=== PATIENT | male | born 1965 | race Caucasian/White ===

== ENCOUNTER 2019-05-07 11:01 | Observation (INO) | payer MEDICAID ==
[~2019-05-07] VITALS: Ht 165.1 cm; Wt 72.5 kg
[~2019-05-07 11:01] MED LIST: ACHD5005 PO; ALPR1TAB2 PO; BSP10T PO; CYCL10TA45 GT; CYCL10TA9 PO; DCS100C PO; DESM0.1T5 PO; FLUO20CA42 PO; FLUO40CA12 PO; HC2.5C30 TOP; HYDR-700 PO; IBP800T PO; LEVO75TA6 PO; LITH300T15 PO; LORA10TA2 PO; MECL12.579 PO; MIRT15TA6 PO; OLAN5TAB25 PO; OMEP40CA36 PO; ONDA4TAB8 PO; PRD20T PO; TAMS0.4C2 PO; TIZA4TAB4 PO; TOPI50TA37 PO; TRM50T PO
[2019-05-07] MEDS ORDERED: HYDROCORTISONE 100 MG/2 ML (Solu-CORTEF) VIAL IV ONE (11:30)
[2019-05-07] MEDS ORDERED: ONDANSETRON 4 MG/2 ML (SDV) Z0FRAN IVP ONE (11:30)
[2019-05-07] MEDS ORDERED: NS IV 1000 ML 1,000 ML IV SCH (11:30)
--- NOTE | 2019-05-07 11:35 | ED GI ---
General Chief Complaint: Abdominal/GI Problems Stated Complaint: VOMITING/DIARRHEA Source of Information: Patient Exam Limitations: No Limitations History of Present Illness Date Seen by Provider: May 07, 2019 Time Seen by Provider: 11:32 Initial Comments To ER with nausea vomiting diarrhea and fatigue since 05/05. No fever no chills. History of pituitary tumor surgery, chronically maintained on prednisone 5 mg daily for his renal insufficiency. He's been unable to take that for the past 48-72 hours because the nausea and vomiting. They are from near [facility], here visiting family. Timing/Duration: 1-2 Days Severity/Quality: Moderate Location: Generalized Abdomen Radiation: No Radiation Activities at Onset: None Associated Symptoms: Nausea/Vomiting Allergies and Home Medications Allergies Coded Allergies: Penicillins (Verified Allergy, Unknown, 05/01/16) Home Medications Alprazolam 1 Mg Tablet, 1 MG PO TID PRN for ANXIETY, (Reported) Desmopressin Acetate 0.1 Mg Tablet, 0.1 MG PO BID, (Reported) Fluoxetine HCl 20 Mg Capsule, 20 MG PO DAILY, (Reported) Hydroxyzine HCl 25 Mg Tablet, 25 MG PO DAILY, (Reported) Ibuprofen 800 Mg Tab, 800 MG PO Q8HR PRN Prescribed by: DUC WRIGHT on 01/16/13 2221 Levothyroxine Sodium 75 Mcg Tablet, 75 MCG PO DAILY, (Reported) Meclizine HCl 12.5 Mg Tablet, 12.5 MG PO TID, (Reported) Mirtazapine 15 Mg Tablet, 15 MG PO HS, (Reported) Olanzapine 5 Mg Tablet, 5 MG PO DAILY, (Reported) Omeprazole 40 Mg Capsule.dr, 40 MG PO DAILY, (Reported) Ondansetron 4 Mg Tab.rapdis, 4 MG PO Q6H PRN for NAUSEA, (Reported) Prednisone 20 Mg Tab, 20 MG PO BID Prescribed by: VINAY SAEED on 05/03/16 1235 Tamsulosin HCl 0.4 Mg Cap.er.24h, 0.4 MG PO DAILY, (Reported) Tizanidine HCl 4 Mg Tablet, 4 MG PO TID, (Reported) Topiramate 50 Mg Tablet, 50 MG PO BID, (Reported) Patient Home Medication List Home Medication List Reviewed: Yes Review of Systems Review of Systems Constitutional: see HPI; No chills, No fever EENTM: No Symptoms Reported Respiratory: No Symptoms Reported Cardiovascular: No Symptoms Reported Gastrointestinal: See HPI, Diarrhea, Nausea Genitourinary: No Symptoms Reported Musculoskeletal: no symptoms reported Skin: no symptoms reported Psychiatric/Neurological: No Symptoms Reported Endocrine: No Symptoms Reported Hematologic/Lymphatic: No Symptoms Reported Past Qduocvw-Dztoce-Jjogsx Hx Patient Social History Alcohol Beverage of Choice: Beer Drug of Choice: MARIJUANA Type Used: Cigarettes Former Smoker, Quit: May 01, 2008 Recent Foreign Travel: No Contact w/Someone Who Travel: No Recent Hopitalizations: Yes Immunizations Up To Date Tetanus Booster (TDap): Unknown Seasonal Allergies Seasonal Allergies: Yes Past Medical History Currently Using CPAP: No Currently Using BIPAP: No Hypotension Reproductive Disorders: No Sexually Transmitted Disease: No HIV/AIDS: No Chronic Diarrhea Arthritis Hypothyroidsim, Pituitary Disease Hearing Impairment: Hard of Hearing Anxiety, Bipolar, Depression Adverse Reaction/Blood Tranf: No Family Medical History No Pertinent Family Hx Physical Exam Vital Signs Vital Signs - First Documented 05/07/19 11:46 Pulse 95 Resp 18 B/P (MAP) 118/91 (100) Pulse Ox 95 Capillary Refill : Height/Weight/BMI Height: 5'6.00" Weight: 153lbs. 0.0oz. [id number]; 24.7 BMI Method:Stated General Appearance: WD/WN, no apparent distress HEENT: PERRL/EOMI, normal ENT inspection Neck: non-tender, full range of motion Respiratory: no respiratory distress, no accessory muscle use Cardiovascular: regular rate, rhythm, no murmur Gastrointestinal: normal bowel sounds, soft, tenderness (no pain at rest, minimally tender to palpation) Extremities: normal range of motion, non-tender Neurologic/Psychiatric: alert, normal mood/affect, oriented x 3 Skin: normal color, warm/dry Progress/Results/Core Measures Results/Orders Lab Results Laboratory Tests Test 05/07/19 11:30 05/07/19 13:45 Range/Units White Blood Count 11.3 H 4.3-11.0 10^3/uL Red Blood Count 5.43 4.35-5.85 10^6/uL Hemoglobin 17.3 13.3-17.7 G/DL Hematocrit 49 40-54 % Mean Corpuscular Volume 91 80-99 FL Mean Corpuscular Hemoglobin 32 25-34 PG Mean Corpuscular Hemoglobin Concent 35 32-36 G/DL Red Cell Distribution Width 13.6 10.0-14.5 % Platelet Count 278 130-400 10^3/uL Mean Platelet Volume 12.0 H 7.4-10.4 FL Neutrophils (%) (Auto) 52 42-75 % Lymphocytes (%) (Auto) 29 12-44 % Monocytes (%) (Auto) 13 H 0-12 % Eosinophils (%) (Auto) 7 0-10 % Basophils (%) (Auto) 0 0-10 % Neutrophils # (Auto) 5.8 1.8-7.8 X 10^3 Lymphocytes # (Auto) 3.2 1.0-4.0 X 10^3 Monocytes # (Auto) 1.4 H 0.0-1.0 X 10^3 Eosinophils # (Auto) 0.8 H 0.0-0.3 10^3/uL Basophils # (Auto) 0.0 0.0-0.1 10^3/uL Sodium Level 139 135-145 MMOL/L Potassium Level 3.3 L 3.6-5.0 MMOL/L Chloride Level 108 H 98-107 MMOL/L Carbon Dioxide Level 18 L 21-32 MMOL/L Anion Gap 13 5-14 MMOL/L Blood Urea Nitrogen 23 H 7-18 MG/DL Creatinine 1.42 H 0.60-1.30 MG/DL Estimat Glomerular Filtration Rate 53 BUN/Creatinine Ratio 16 Glucose Level 119 H 70-105 MG/DL Calcium Level 8.9 8.5-10.1 MG/DL Corrected Calcium 8.9 8.5-10.1 MG/DL Magnesium Level 1.8 1.6-2.4 MG/DL Total Bilirubin 0.9 0.1-1.0 MG/DL Aspartate Amino Transf (AST/SGOT) 9 5-34 U/L Alanine Aminotransferase (ALT/SGPT) 6 0-55 U/L Alkaline Phosphatase 87 40-136 U/L Total Protein 6.7 6.4-8.2 GM/DL Albumin 4.0 3.2-4.5 GM/DL Lipase < 4 L 8-78 U/L Thyroid Stimulating Hormone (TSH) 0.04 L 0.35-4.94 UIU/ML Free Thyroxine 0.97 0.70-1.48 NG/DL Urine Color YELLOW Urine Clarity CLEAR Urine pH 6.0 5-9 Urine Specific [place] 1.025 H 1.016-1.022 Urine Protein NEGATIVE NEGATIVE Urine Glucose (UA) NEGATIVE NEGATIVE Urine Ketones NEGATIVE NEGATIVE Urine Nitrite NEGATIVE NEGATIVE Urine Bilirubin NEGATIVE NEGATIVE Urine Urobilinogen 0.2 < = 1.0 MG/DL Urine Leukocyte Esterase NEGATIVE NEGATIVE Urine RBC (Auto) NEGATIVE NEGATIVE Urine RBC NONE /HPF Urine WBC NONE /HPF Urine Squamous Epithelial Cells 2-5 /HPF Urine Crystals NONE /LPF Urine Bacteria TRACE /HPF Urine Casts NONE /LPF Urine Mucus SMALL H /LPF Urine Culture Indicated NO My Orders Orders - YOUNG EM BALANCER Cbc With Automated Diff (05/07/19 11:29) Comprehensive Metabolic Panel (05/07/19 11:29) Lipase (05/07/19 11:29) Ua Culture If Indicated (05/07/19 11:29) Ed Iv/Invasive Line Start (05/07/19 11:29) Magnesium (05/07/19 11:29) Thyroid Stimulating Hormone (05/07/19 11:29) Free T4 (Free Thyroxine) (05/07/19 11:29) Ns Iv 1000 Ml (Sodium Chloride 0.9%) (05/07/19 11:30) Ondansetron Injection (Zofran Injectio (05/07/19 11:30) Hydrocortisone Injection (Solu-Cortef In (05/07/19 11:30) Ct Abdomen/Pelvis Wo (05/07/19 12:25) Lactated Ringers (Lr 1000 Ml Iv Solution (05/07/19 13:30) Medications Given in ED Current Medications Medications Dose Ordered Sig/Francisco Route Start Time Stop Time Status Last Admin Dose Admin Hydrocortisone Sodium Succinate 100 mg ONCE ONCE IV 05/07/19 11:30 05/07/19 11:31 DC 05/07/19 11:45 100 MG Ondansetron HCl 4 mg ONCE ONCE IVP 05/07/19 11:30 05/07/19 11:31 DC 05/07/19 11:45 4 MG Vital Signs/I&O 05/07/19 11:46 Pulse 95 Resp 18 B/P (MAP) 118/91 (100) Pulse Ox 95 Departure Communication (Admissions) Time/Spoke to Admitting Phy: 14:13 Discussed with the patient going home with increased dose of prednisone at home for the next few days or admission to the hospital. He would prefer to be admitted. I then discussed with Dr. Pantoja, we'll admit with repeat dose of hydrocortisone 50 mg at 6 hours after the first dose of 100 mg, then prednisone 15 mg daily which is 3 times his normal daily dose for 3 days. 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 Referrals: NO,LOCAL PHYSICIAN (PCP/Family) Primary Care Physician YOUNG EM APRN May 07, 2019 11:35 POS
[2019-05-07 11:37] LABS: BASOPHILS % (AUTO) 0 % (0-10); EOSINOPHILS # (AUTO) 0.8 10^3/uL (0.0-0.3); EOSINOPHILS % (AUTO) 7 % (0-10); HEMATOCRIT 49 % (40-54); HEMOGLOBIN 17.3 G/DL (13.3-17.7); LYMPHOCYTES # (AUTO) 3.2 X 10^3 (1.0-4.0); LYMPHOCYTES % (AUTO) 29 % (12-44); MEAN CORPUSCULAR HEMOGLOBIN 32 PG (25-34); MEAN CORPUSCULAR HGB CONC 35 G/DL (32-36); MEAN CORPUSCULAR VOLUME 91 FL (80-99); MONOCYTES # (AUTO) 1.4 X 10^3 (0.0-1.0); MONOCYTES % (AUTO) 13 % (0-12); NEUTROPHILS # (AUTO) 5.8 X 10^3 (1.8-7.8); NEUTROPHILS % (AUTO) 52 % (42-75); PLATELET COUNT 278 10^3/uL (130-400); RED CELL DISTRIBUTION WIDTH 13.6 % (10.0-14.5); WHITE BLOOD COUNT 11.3 10^3/uL (4.3-11.0)
[2019-05-07 11:55] LABS: ALANINE AMINOTRANSFERASE 6 U/L (0-55); ALKALINE PHOSPHATASE 87 U/L (40-136); BILIRUBIN,TOTAL 0.9 MG/DL (0.1-1.0); BUN/CREATININE RATIO 16; CALCIUM 8.9 MG/DL (8.5-10.1); CARBON DIOXIDE 18 MMOL/L (21-32); CHLORIDE 108 MMOL/L (98-107); CREATININE SERUM 1.42 MG/DL (0.60-1.30); GFR ESTIMATED 53; GLUCOSE 119 MG/DL (70-105); LIPASE < 4 U/L (8-78); MAGNESIUM 1.8 MG/DL (1.6-2.4); POTASSIUM 3.3 MMOL/L (3.6-5.0); SODIUM 139 MMOL/L (135-145); TOTAL PROTEIN 6.7 GM/DL (6.4-8.2)
[2019-05-07 12:16] LABS: FREE T4 (FREE THYROXINE) 0.97 NG/DL (0.70-1.48)
--- NOTE | 2019-05-07 13:25 | Diagnostic Imaging Report ---
Procedure: CT abdomen and pelvis without contrast. Technique: Multiple contiguous axial images were obtained through the abdomen and pelvis without the use of intravenous contrast. Auto Exposure Controls were utilized during the CT exam to meet ALARA standards for radiation dose reduction. Indication: Abdominal pain with nausea, vomiting and diarrhea for four days. Comparison: None. Discussion: The lung bases are well-aerated. Normal heart size. No pleural or pericardial fluid. The gallbladder is mostly contracted. The liver, pancreas, stomach, spleen, and adrenal glands are unremarkable. No renal stone or hydronephrosis on either side. The aorta is normal in caliber. Urinary bladder and prostate are unremarkable. There are multiple thick-walled prominent small bowel loops noted diffusely throughout the abdomen with a few air-fluid levels noted. The colon is mostly decompressed. The appendix is normal. There is no abrupt transition point identified. Findings are nonspecific and could be seen with small bowel obstruction, or nonspecific enteritis including both infectious or inflammatory etiologies. Recommend clinical correlation and radiographic follow-up as indicated. The bowel is dilated to the ileocecal junction. No ascites or abnormal lymph nodes identified. Fat-containing left inguinal hernia. No osseous abnormality identified. Impression: 1. Abnormal thick-walled inflamed-appearing small bowel loops are noted diffusely throughout the abdomen with scattered air-fluid levels. Findings are concerning for enteritis, infectious versus inflammatory, less likely bowel obstruction. Recommend clinical correlation. Dictated by: Dictated on workstation # [id number]
[2019-05-07] MEDS ORDERED: LACTATED RINGERS 1,000 ML IV SCH (13:30)
[2019-05-07 13:55] LABS: BILIRUBIN,URINE NEGATIVE (NEGATIVE); CLARITY,URINE CLEAR; COLOR,URINE YELLOW; GLUCOSE, URINE (UA) NEGATIVE (NEGATIVE); KETONES,URINE NEGATIVE (NEGATIVE); LEUKOCYTE ESTERASE ,URINE NEGATIVE (NEGATIVE); NITRITE,URINE NEGATIVE (NEGATIVE); PROTEIN,URINE NEGATIVE (NEGATIVE)
[2019-05-07 14:06] LABS: BACTERIA,URINE TRACE /HPF
--- NOTE | 2019-05-07 15:00 | NUR ---
SHARI GLASGOW admitted to room 423-1, with an admitting diagnosis of ADRENAL INSUFF AND GASTROENTERITIS, on 05/07/19 from ED via BED, accompanied by FRIENDS. SHARI GLASGOW introduced to surroundings, call light, bed controls, phone, TV, temperature control, lights, meal times, smoking policy, visitor policy, side rail policy, bathrooms and showers. Patient Rights given to patient in the handbook. SHARI GLASGOW verbalizes understanding that [facility] is not responsible for the loss or damage to any personal effects or valuables that are kept in the patients posession during their hospitalization. The following Patient Care Plans were discussed with the PT: Discharge Planning, PAIN, AD GASTROENTERITIS. SHARI GLASGOW verbalizes understanding of Interdisciplinary Patient Education. Patient and/or family were informed about the Rapid Response Team and its purpose.
[2019-05-07] MEDS ORDERED: ONDANSETRON 4 MG/2 ML (SDV) Z0FRAN IV PRN (15:15)
[2019-05-07 15:20] VITALS: BP 90/67
[2019-05-07 16:00] VITALS: BP 115/83
[2019-05-07] MEDS: NS W/KCL 40 MEQ/L 1,000 ML IV SCH ×2 (16:02→22:16)
[2019-05-07] MEDS ORDERED: HYDROCORTISONE 100 MG/2 ML (Solu-CORTEF) VIAL IV NR (19:00)
--- NOTE | 2019-05-07 19:28 | NUR ---
PT DOES NOT HAVE CURRENT MED LIST WITH HIM AND IS UNSURE OF WHAT MEDS HE TAKES.
[2019-05-07 20:00] VITALS: BP 110/68
[2019-05-08 00:20] VITALS: BP 107/62
[2019-05-08 04:32] VITALS: BP 113/64
[2019-05-08] MEDS: NS W/KCL 40 MEQ/L 1,000 ML IV SCH (05:07)
[2019-05-08 05:24] LABS: BASOPHILS % (AUTO) 0 % (0-10); EOSINOPHILS # (AUTO) 0.6 10^3/uL (0.0-0.3); EOSINOPHILS % (AUTO) 8 % (0-10); HEMATOCRIT 43 % (40-54); HEMOGLOBIN 14.4 G/DL (13.3-17.7); LYMPHOCYTES # (AUTO) 1.6 X 10^3 (1.0-4.0); LYMPHOCYTES % (AUTO) 19 % (12-44); MEAN CORPUSCULAR HEMOGLOBIN 31 PG (25-34); MEAN CORPUSCULAR HGB CONC 34 G/DL (32-36); MEAN CORPUSCULAR VOLUME 92 FL (80-99); MEAN PLATELET VOLUME 12.1 FL (7.4-10.4); MONOCYTES % (AUTO) 13 % (0-12); NEUTROPHILS % (AUTO) 60 % (42-75); PLATELET COUNT 204 10^3/uL (130-400); RED CELL DISTRIBUTION WIDTH 13.6 % (10.0-14.5); WHITE BLOOD COUNT 8.2 10^3/uL (4.3-11.0)
[2019-05-08 05:56] LABS: ALANINE AMINOTRANSFERASE < 6 U/L (0-55); ALBUMIN 3.4 GM/DL (3.2-4.5); ALKALINE PHOSPHATASE 65 U/L (40-136); BILIRUBIN,TOTAL 0.5 MG/DL (0.1-1.0); BUN/CREATININE RATIO 11; CALCIUM 7.9 MG/DL (8.5-10.1); CARBON DIOXIDE 16 MMOL/L (21-32); CHLORIDE 119 MMOL/L (98-107); CREATININE SERUM 0.87 MG/DL (0.60-1.30); GFR ESTIMATED > 60; GLUCOSE 96 MG/DL (70-105); POTASSIUM 4.1 MMOL/L (3.6-5.0); SODIUM 142 MMOL/L (135-145); TOTAL PROTEIN 5.5 GM/DL (6.4-8.2)
[2019-05-08] MEDS ORDERED: predniSONE 5 MG TAB PO SCH (07:00)
[2019-05-08 08:00] VITALS: BP 111/73
--- NOTE | 2019-05-08 10:12 | History & Physical-Hospitalist ---
RHONDA MYERS [facility] 05/08/19 1012: History of Present Illness HPI/Chief Complaint Placido is 53 y/o white male that presented to the ER on 05/07 for N/V and diarrhea. The patient started to feel sick the day after thanksgiving dinner. He was having N/V and diarrhea from 05/05 to 05/07. He has no pain associated with these events and sprite has helped make it better. He cannot think of any other associated symptoms and he is not sure if blood was present in stool. The symptoms were throughout the day and remembers vomiting about 8-10 times and di arrhea consistently. He denies having symptoms like this before and has never had bowel movements issues in the past. Pt states he still took medications and believed he was able to hold them down but was not sure. Pt has PMH of pituitary cancer and is of medications to account for this. Date Seen 05/08/19 Time Seen by a Provider: 09:30 Attending Physician Emanuel Pantoja MD PCP No,Local Physician Referring Physician Date of Admission May 07, 2019 at 13:37 Home Medications & Allergies Home Medications Reviewed patient Home Medication Reconciliation performed by pharmacy medication reconciliations soils technician and/or nursing. Patients Allergies have been reviewed. Allergies Allergies Coded Allergies Penicillins (Verified Allergy, Unknown, 05/07/19) Pt stated he has allergies (hay fever). allergic to watermelon and bananas and already noted PCN. Past Vrlkthm-Dnatjo-Xffuoz Hx Patient Social History Alcohol Use: Denies Use Number of Drinks Today: AA Recreational Drug Use: No (denied use) Drug of Choice: thc Smoking Status: Former Smoker Former Smoker, Quit: May 01, 2008 Type Used: Cigarettes Physical Abuse Screen: No Sexual Abuse: No Recent Foreign Travel: No Contact w/other who traveled: No Recent Hopitalizations: Yes Recent Infectious Disease Expo: No Social History Patient is a former smoker, denied drinking alcohol and denied recreational drug use) Immunizations Up To Date Tetanus Booster (TDap): Unknown Seasonal Allergies Seasonal Allergies: Yes Past Medical History Surgeries: Pituitary (Pituitary cancer ) Currently Using CPAP: No Currently Using BIPAP: No Cardiac: Hypotension Reproductive: No Sexually Transmitted Disease: No HIV/AIDS: No Musculoskeletal: Arthritis Endocrine: Hypothyroidsim, Pituitary Disease Hearing Impairment: Hard of Hearing Cancer: Brain (Pituitary ) Did You Recieve Any Treatments: Yes What Type of Treatment Did You: Surgical Intervention Psychosocial: Anxiety, Bipolar, Depression History of Blood Disorders: No Adverse Reaction to Blood Cheng: No Family History No Pertinent Family Hx (Patient could not remember mother and fathers PMH and states they past away from old age. ) Review of Systems Constitutional: No chills, No dizziness, No weight loss EENTM: no symptoms reported Respiratory: no symptoms reported Cardiovascular: no symptoms reported Gastrointestinal: no symptoms reported Genitourinary: no symptoms reported Musculoskeletal: no symptoms reported Skin: no symptoms reported Psychiatric/Neurological: No Symptoms Reported Physical Exam Physical Exam Vital Signs Vital Signs - First Documented 05/07/19 05/07/19 11:46 15:20 Temp 36.0 Pulse 95 Resp 18 B/P (MAP) 118/91 (100) Pulse Ox 95 O2 Delivery Room Air Capillary Refill : Less Than 3 SecondsLess Than 3 Seconds Height, Weight, BMI Height: 5'6.00" Weight: 153lbs. 0.0oz. 69.240289el; 26.59 BMI Method:Stated General Appearance: No Apparent Distress, WD/WN Eyes: Bilateral Eye PERRL, Bilateral Eye EOMI HEENT: PERRL/EOMI, Moist Mucous Membranes, Other (Oral thrush ) Neck: Full Range of Motion, Non Tender Respiratory: Chest Non Tender, Lungs Clear, Normal Breath Sounds, No Accessory Muscle Use, No Respiratory Distress Cardiovascular: Regular Rate, Rhythm, No Murmur, Normal Peripheral Pulses Gastrointestinal: No Organomegaly, No Pulsatile Mass, Abnormal Bowel Sounds (Hyperactive ); No Distended, No Guarding Back: No CVA Tenderness Extremity: Normal Capillary Refill, Normal Range of Motion, No Pedal Edema, Other (Onychomycosis ) Neurologic/Psychiatric: Alert, Oriented x3, rn pediatric II-XII Norm as Tested, Other (Patinet seems to take longer on response to questions) Skin: Normal Color, Warm/Dry Lymphatic: No Adenopathy Results Results/Procedures Labs Laboratory Tests 05/07/19 11:30 05/08/19 04:55 Patient resulted labs reviewed. Assessment/Plan Admission Diagnosis - Adrenal insufficiency - Hypokalemia - Gastroenteritis - Leukocytosis - Oral thrush -Onychomycosis Assessment and Plan - Adrenal insufficiency - Prerenal Azotemia - Hypokalemia - Gastroenteritis - Leukocytosis - Oral thrush -Onychomycosis Plan: Adrenal insufficiency: continue prednisone and taper back to patients normal home dose. Confirm with patient that he is taking the correct amount. Renal Function: improving with IV fluids Hypokalemia: Resolved Leukocytosis: Improving, could be do to gastroenteritis, or steroid use Gastroenteritis: continue to symptomatic care, IV fluids and we can start to advance diet as tolerated. Patients N/V has stopped. No diarrhea since yesterday. C-diff toxin came back negative, can remove patient from contact precaution. Onychomycosis: consider terbinafine Oral Thrush: Nystatin, swish ands spit, and advise patient on oral rinse after steroid use. Patient has not had a colonoscopy yet and spoke to him about getting one of those sometime soon for screening purposes. DVT prophylaxis: patient should be on mechanical DVT prophylaxis if not up and moving. Patient should be encouraged to move around as much as possible. Consider D/C for tomorrow or later today. Patient is improving, recommend patient following up with PCP back home. Consider continue home meds while patient is here. Clinical Quality Measures DVT/VTE Risk/Contraindication: Risk Factor Score Per Nursin RFS Level Per Nursing on Admit: 2=Moderate EMANUEL PANTOJA MD 05/08/19 1257: Past Zbwsanu-Lujjjn-Aqryby Hx Past Med/Social Hx: Reviewed Nursing Past Med/Soc Hx Assessment/Plan Admission Diagnosis Admission Status: Observation Assessment and Plan HPI: Pt with history of pituitary adenoma on chronic prednisone who admitted due adrenal insufficiency and diarrhea. Symptoms started after Thanksgiving on 05/05 and started with vomiting. They progressed over the last day and a half to diarrhea. He believes he was able to keep his steroids down but is not sure. On arrival here he had a mild SARA and was hypokalemic. Blood pressures were stable but he was admitted for observation due to complex medical history. He was give SoluCortef in the ER and that has continued. BPs have been stable throughout admission. He has had no further diarrhea and has tolerated his clear liquid diet. He is requesting DC home. A/P: Gastroenteritis improving, advance diet, if tolerates can DC home C diff testing negative Adrenal Insufficiency s/p SoluCortef at 100mg Complete stress dose with 15mg dose tomorrow Can DC home if tolerates diet and will follow up with his PCP. 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 I reviewed and verified all information documented by the medical student and made modifications to such information, when appropriate. I personally performed the physical exam and medical decision making. Emanuel Pantoja, May 08, 2019,12:57 [facility] May 08, 2019 10:12 EMANUEL CURRY MD May 08, 2019 12:57 POS
[2019-05-08] MEDS ORDERED: LORA10TA7 PO (11:00)
[2019-05-08] MEDS ORDERED: MELO15TA39 PO (11:00)
[2019-05-08] MEDS ORDERED: TAMS0.4C98 PO (11:00)
[2019-05-08] MEDS ORDERED: ZOLP10TA5 PO (11:00)
[2019-05-08] MEDS ORDERED: ATOR10TA66 PO (11:00)
[2019-05-08] MEDS ORDERED: OMEP20CA13 PO (11:00)
[2019-05-08] MEDS ORDERED: PRED5TAB PO ×2 (11:00→12:41)
[2019-05-08] MEDS ORDERED: ARIP20TA9 PO (11:00)
[2019-05-08] MEDS ORDERED: TOPI50TA13 PO (11:00)
[2019-05-08] MEDS ORDERED: DIPH1TAB25 PO (11:04)
[2019-05-08] MEDS ORDERED: POTA99TA21 PO (11:04)
[2019-05-08] MEDS ORDERED: CYAN-41 PO (11:04)
[2019-05-08 12:00] VITALS: BP 101/69
--- NOTE | 2019-05-08 12:26 | Discharge Inst-Simple/Standard ---
Discharge Inst-Standard Reconcile Patient Problems Problems Reviewed?: Yes Patient Instructions/Follow Up Plan of Care/Instructions/FU: Please continue to take her medications as written. Please follow up with her PCP in the next week to follow up this hospital stay. Activity as Tolerated: Yes Discharge Diet: No Restrictions Return to The Hospital For: Abdominal pain, nausea, vomiting, diarrhea, low blood pressure, confusion, if you feel you are getting worse. EMANUEL DIAZ MD May 08, 2019 12:26 POS
[2019-05-08] MEDS ORDERED: LEVO100T7 (12:27)
[2019-05-08] MEDS ORDERED: METH500T7 PO (12:27)
[2019-05-08] MEDS ORDERED: ONDA8TAB6 PO (12:27)
[2019-05-08] MEDS ORDERED: CHOL500044 PO (12:28)
--- NOTE | 2019-05-08 12:28 | NUR ---
PATIENT STATES HE IS NOT FAMILIAR WITH HIS MEDICATIONS AND ASK THAT I CALL HIS . I HAVE CALLED AND LEFT A MESSAGE. I UPDATED THE MED REC WITH THE LIST SCANNED ONTO HIS CHART AND COMPARED IT WITH THE EXT MED HX. THERE ARE A FEW I HAVE A QUESTION ABOUT. I WILL VERIFY THEM WHEN I HEAR BACK FROM HIS .
--- NOTE | 2019-05-08 14:09 | NUR ---
"RD ASSESSMENT PMHx: hypotension; chronic diarrhea; hypothyroidism PT INTERACTION: Pt was awake and pleasant for consult for MST score. Pt states current appetite is poor and has been for the last 3d. Note pt avg PO intake of 25% m0btwiz, per chart review. Pt states following a regular diet at home, and currently has difficulty chewing as he is missing some of his teeth. Pt states recent episodes of nausea, vomiting, and diarrhea over the last 3 days. Note last BM was 12/, and pt not currently on bowel regimen per chart review. Pt states no recent wt changes. Note unable to determine recent wt hx, per chart review. Upon visual exam, pt appears to be adequately nourished with no visible signs of muscle/fat wasting and a BMI of 26.6. Though pt has had recent poor PO intake, pt does not meet criteria for malnutrition at this time, per ASPEN guidelines. ABNORMAL NUTRITION-RELATED LAB VALUES LOW: Ca 7.9; Pro 5.5 HIGH: Cl 119 Est. kcal needs: 9665-8888 kcal | 20-25 kcal/kg Est. Pro needs: 73-87 g Pro | 1.0-1.2 g Pro/kg PES STATEMENT: Inadequate oral intake (NI-2.1) related to loss of appetite | nausea | vomiting | diarrhea as evidenced by pt interview | avg PO intake of 25% x2meal INTERVENTION: Continue with Clear Liquid diet. Advance diet as tolerated and as medically able. Add Ensure Clear (vary) to meals TID. Provides 240 kcal and 8 g Pro per serving. Will continue to follow and reassess as pt needs and status change. MONITOR/EVALUATE: PO Intake; Plan of Care; Hydration Status; Weight Status; Lab Values Jasmine Moreno, MS, RD, LD"
[2019-05-08 15:45] VITALS: BP 101/69
--- OUTSIDE RECORDS SUMMARY | 2019-06-01 08:52 | XMS REPORT | Continuity of Care Document ---
Author Organization Unknown Address Unknown Phone Unavailable Allergies Active Description Code Type Severity Reaction Onset Reported/Identified Relationship to Patient Clinical Status Yes No Known Drug Allergies [id number] Drug Allergy Unknown N/A 11/28/2012 Yes Penicillins [id number] Drug Aller gy Unknown N/A 05/07/2019 Medications There is no data. Problems Date Dx Coded Attending Type Code Diagnosis Diagnosed By 11/28/2012 JESUS RODRÍGUEZ Ot 719.41 JOINT PAIN-SHLDER 11/28/2012 JESUS RODRÍGUEZ Ot 840.9 SPRAIN SHOULDER/ARM NOS 11/28/2012 JESUS RODRÍGUEZ Ot E000.8 OTHER EXTERNAL CAUSE STATUS 11/28/2012 JESUS RODRÍGUEZ Ot E849.0 ACCIDENT IN HOME 11/28/2012 JESUS RODRÍGUEZ Ot E927.0 OVEREXERTION FROM SUDDEN STRENUOUS MOVEM 01/16/2013 DUC TERRY MD Ot 723.1 CERVICALGIA 01/16/2013 DUC TERRY MD T Ot 728.85 SPASM OF MUSCLE 01/20/2013 JESUS RODRÍGUEZ Ot 723.1 CERVICALGIA 01/20/2013 JESUS RODRÍGUEZ Ot 728.85 SPASM OF MUSCLE 01/25/2013 AREN JADE MD Ot 455.6 HEMORRHOIDS NOS 01/25/2013 AREN JADE MD Ot 569.42 ANAL OR RECTAL PAIN 05/03/2016 DARLIN FLOREZ VINAY Ot E03.9 HYPOTHYROIDISM, UNSPECIFIED 05/03/2016 DARLIN FLOREZ VINAY Ot E27.2 ADDISONIAN CRISIS 05/03/2016 DARLIN FLOREZ VINAY Ot E86.0 DEHYDRATION 05/03/2016 SAEEDJANE FLOREZ VNIAY Ot E87.1 HYPO-OSMOLALITY AND HYPONATREMIA 05/03/2016 DARLIN FLOREZ VINAY Ot E87.6 HYPOKALEMIA 05/03/2016 SAEED DO, VINAY Ot 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 1 TINEA UNGUIUM 05/08/2019 EMANUEL DIAZ MD Ot B37. 0 CANDIDAL STOMATITIS 05/08/2019 EMANUEL DIAZ MD Ot D72.829 ELEVATED WHITE BLOOD CELL COUNT, UNSPECI 05/08/2019 EMANUEL DIAZ MD Ot E03. 9 HYPOTHYROIDISM, UNSPECIFIED 05/08/2019 EMANUEL DIAZ MD Ot E23. 0 HYPOPITUITARISM 05/08/2019 EMANUEL DIAZ MD Ot E27. 40 UNSPECIFIED ADRENOCORTICAL INSUFFICIENCY 05/08/2019 EMANUEL DIAZ MD Ot E87. 1 HYPO-OSMOLALITY AND HYPONATREMIA 05/08/2019 EMANUEL DIAZ MD Ot E87. 6 HYPOKALEMIA 05/08/2019 EMANUEL DIAZ MD Ot F12. 90 CANNABIS USE, UNSPECIFIED, UNCOMPLICATED 05/08/2019 EMANUEL DIAZ MD Ot F31. 9 BIPOLAR DISORDER, UNSPECIFIED 05/08/2019 EMANUEL DIAZ MD Ot F41. 9 ANXIETY DISORDER, UNSPECIFIED 05/08/2019 EMANUEL DIAZ MD Ot I95. 9 HYPOTENSION, UNSPECIFIED 05/08/2019 EMANUEL DIAZ MD Ot K25. 9 GASTRIC ULCER, UNSP ACUTE OR CHRONIC, 05/08/2019 EMANUEL DIAZ MD Ot M19. 90 UNSPECIFIED OSTEOARTHRITIS, UNSPECIFIED 05/08/2019 EMANUEL DIAZ MD Ot Z79.899 OTHER CALL OR CONTACT CENTRE COACH (CURRENT) DRUG THERAPY 05/08/2019 EMANUEL DIAZ MD Ot Z87.891 PERSONAL HISTORY OF NICOTINE DEPENDENCE 05/08/2019 EMANUEL DIAZ MD Ot Z88. 0 ALLERGY STATUS TO PENICILLIN 05/08/2019 JOE MD, EMANUEL M Ot B35. 1 TINEA UNGUIUM 05/08/2019 EMANUEL DIAZ MD, Ot B37. 0 CANDIDAL STOMATITIS 05/08/2019 EMANUEL DIAZ MD, Ot D72.829 ELEVATED WHITE BLOOD CELL COUNT, UNSPECI 05/08/2019 EMANUEL DIAZ MD, Ot E03. 9 HYPOTHYROIDISM, UNSPECIFIED 05/08/2019 EMANUEL DIAZ MD, Ot E23. 0 HYPOPITUITARISM 05/08/2019 EMANUEL DIAZ MD, Ot E27. 40 UNSPECIFIED ADRENOCORTICAL INSUFFICIENCY 05/08/2019 EMANUEL DIAZ MD, Ot E87. 1 HYPO-OSMOLALITY AND HYPONATREMIA 05/08/2019 EMANUEL DIAZ MD, Ot E87. 6 HYPOKALEMIA 05/08/2019 EMANUEL DIAZ MD, Ot F12. 90 CANNABIS USE, UNSPECIFIED, UNCOMPLICATED 05/08/2019 EMANUEL DIAZ MD Ot F31. 9 BIPOLAR DISORDER, UNSPECIFIED 05/08/2019 EMANUEL DIAZ MD, Ot F41. 9 ANXIETY DISORDER, UNSPECIFIED 05/08/2019 EMANUEL DIAZ MD, Ot I95. 9 HYPOTENSION, UNSPECIFIED 05/08/2019 EMANUEL DIAZ MD, Ot K25. 9 GASTRIC ULCER, UNSP ACUTE OR CHRONIC, 05/08/2019 EMANUEL IDAZ MD, Ot M19. 90 UNSPECIFIED OSTEOARTHRITIS, UNSPECIFIED 05/08/2019 EMANUEL DIAZ MD, Ot Z79.899 OTHER PENITENTIARY (CURRENT) DRUG THERAPY 05/08/2019 EMANUEL DIAZ MD, Ot Z87.891 PERSONAL HISTORY OF NICOTINE DEPENDENCE 05/08/2019 EMANUEL DIAZ MD, Ot Z88. 0 ALLERGY STATUS TO PENICILLIN Procedures There is no data. Results Test Result Range C DIFFICILE AG + TOXIN A/B. - 05/01/16 1 4:15 RESULTS NEGATIVE FOR ANTIGEN AND TOXIN A/B [facility] Stool bacteria identification by culture - 05/01/16 14:15 Stool bacteria identification by culture N2 NR Ova and parasites - 05/01/16 14:15 DATE OF REF LAB REPORT 05-15-2016 NR OTP NEGATIVE RESULT PARASITES NOT FOUND NRG Complete blood count (CBC) with automate d white blood cell (WBC) differential - 05/01/16 14:33 Blood leukocytes automated count (number/volume) 5.4 10*3/uL 4.3-11.0 Blood erythrocytes automated count (number/volume) 4.51 10*6/uL 4.35-5.85 Venous blood hemoglobin measurement (mass/volume) 14.4 g/dL 13.3-17.7 Blood hematocrit (volume fraction) 39 % 40-54 Automated erythrocyte mean corpuscular volume 87 [ foz_us] 80-99 Automated erythrocyte mean corpuscular h emoglobin (mass per erythrocyte) 32 pg 25-34 Automated erythrocyte mean corpuscular h emoglobin concentration measurement (mass/volume) 37 g/dL 32-36 Automated erythrocyte distribution width ratio 13. 4 % 10.0- 14.5 Automated blood platelet count (count/volume) 236 10*3/uL 130-400 Automated blood platelet mean volume measurement 11.1 [foz_us] 7.4-10.4 Automated blood neutrophils/100 leukocytes 24 % 42-75 Automated blood lymphocytes/100 leukocytes 46 % 12-44 Blood monocytes/100 leukocytes 6 % 0-12 Automated blood eosinophils/100 leukocytes 22 % 0-10 Automated blood basophils/100 leukocytes 1 % 0-10 Blood neutrophils automated count (number/volume) 1.3 10*3 1.8-7.8 Blood lymphocytes automated count (number/volume) 2.5 10*3 1.0-4.0 Blood monocytes automated count (number/volume) 0. 3 10*3 0.0-1.0 Automated eosinophil count 1.2 10*3/uL 0 .0-0.3 Automated blood basophil count (count/volume) 0.1 10*3/uL 0.0-0.1 Comprehensive metabolic panel - 05/01/16 14:33 Serum or plasma sodium measurement (moles/volume) 123 mmol/L 135-145 Serum or plasma potassium measurement (moles/volume) 3.3 mmol/L 3.6-5.0 Serum or plasma chloride measurement (moles/volume) 96 mmol/L 98-107 Carbon dioxide 16 mmol/L 21-32 Serum or plasma anion gap determination (moles/volume) 11 mmol/L 5-14 Serum or plasma urea nitrogen measurement (mass/volume ) 4 mg/dL 7-18 Serum or plasma creatinine measurement (mass/volume) 0.79 mg/dL 0.60-1.30 Serum or plasma urea nitrogen/creatinine mass ratio 5 NRG Serum or plasma creatinine measurement w ith calculation of estimated glomerular filtration rate > NRG Serum or plasma glucose measurement (mass/volume) 63 mg/dL 70-105 Serum or plasma calcium measurement (mass/volume) 9.1 mg/dL 8.5-10.1 Serum or plasma total bilirubin measurement (mass/volu me) 0.6 mg/dL 0.1-1.0 Serum or plasma alkaline phosphatase chirag surement (enzymatic activity/volume) 51 U/L 40-136 Serum or plasma aspartate aminotransfera se measurement (enzymatic activity/volume) 49 U/L 5-34 Serum or plasma alanine aminotransferase measurement (enzymatic activity/volume) 9 U/L 0-55 Serum or plasma protein measurement (mass/volume) 6.2 g/dL 6.4-8.2 Serum or plasma albumin measurement (mass/volume) 3.9 g/dL 3.2-4.5 Blood manual differential performed dete ction - 05/01/16 14:33 Blood monocytes/100 leukocytes 5 % NRG Manual blood segmented neutrophils/100 leukocytes 23 % NRG Blood band neutrophils/100 leukocytes 0 % NRG Manual blood lymphocytes/100 leukocytes 49 % NRG Manual eosinophils/100 leukocytes in nose 20 % NRG Manual blood basophils/100 leukocytes 3 % NRG Blood erythrocyte morphology finding identification NORMAL NRG THYROID STIMULATING HORMONE - 05/01/16 1 4:33 THYROID STIMULATING HORMONE 0.38 u[iU]/mL 0.35-4.94 Complete blood count (CBC) with automate d white blood cell (WBC) differential - 05/02/16 05:35 Blood leukocytes automated count (number/volume) 2.6 10*3/uL 4.3-11.0 Blood erythrocytes automated count (number/volume) 4.46 10*6/uL 4.35-5.85 Venous blood hemoglobin measurement (mass/volume) 14.1 g/dL 13.3-17.7 Blood hematocrit (volume fraction) 39 % 40-54 Automated erythrocyte mean corpuscular volume 88 [ foz_us] 80-99 Automated erythrocyte mean corpuscular h emoglobin (mass per erythrocyte) 32 pg 25-34 Automated erythrocyte mean corpuscular h emoglobin concentration measurement (mass/volume) 36 g/dL 32-36 Automated erythrocyte distribution width ratio 13. 9 % 10.0- 14.5 Automated blood platelet count (count/volume) 230 10*3/uL 130-400 Automated blood platelet mean volume measurement 12.1 [foz_us] 7.4-10.4 Automated blood neutrophils/100 leukocytes 64 % 42-75 Automated blood lymphocytes/100 leukocytes 30 % 12-44 Blood monocytes/100 leukocytes 5 % 0-12 Automated blood eosinophils/100 leukocytes 2 % 0-10 Automated blood basophils/100 leukocytes 0 % 0-10 Blood neutrophils automated count (number/volume) 1.7 10*3 1.8-7.8 Blood lymphocytes automated count (number/volume) 0.8 10*3 1.0-4.0 Blood monocytes automated count (number/volume) 0. 1 10*3 0.0-1.0 Automated eosinophil count 0.0 10*3/uL 0 .0-0.3 Automated blood basophil count (count/volume) 0.0 10*3/uL 0.0-0.1 Comprehensive metabolic panel - 05/02/16 05:35 Serum or plasma sodium measurement (moles/volume) 131 mmol/L 135-145 Serum or plasma potassium measurement (moles/volume) 4.8 mmol/L 3.6-5.0 Serum or plasma chloride measurement (moles/volume) 109 mmol/L 98-107 Carbon dioxide 13 mmol/L 21-32 Serum or plasma anion gap determination (moles/volume) 9 mmol/L 5-14 Serum or plasma urea nitrogen measurement (mass/volume ) 6 mg/dL 7-18 Serum or plasma creatinine measurement (mass/volume) 0.73 mg/dL 0.60-1.30 Serum or plasma urea nitrogen/creatinine mass ratio 8 NRG Serum or plasma creatinine measurement w ith calculation of estimated glomerular filtration rate > NRG Serum or plasma glucose measurement (mass/volume) 110 mg/dL 70-105 Serum or plasma calcium measurement (mass/volume) 8.5 mg/dL 8.5-10.1 Serum or plasma total bilirubin measurement (mass/volu me) 0.3 mg/dL 0.1-1.0 Serum or plasma alkaline phosphatase chirag surement (enzymatic activity/volume) 51 U/L 40-136 Serum or plasma aspartate aminotransfera se measurement (enzymatic activity/volume) 82 U/L 5-34 Serum or plasma alanine aminotransferase measurement (enzymatic activity/volume) 15 U/L 0-55 Serum or plasma protein measurement (mass/volume) 5.9 g/dL 6.4-8.2 Serum or plasma albumin measurement (mass/volume) 3.7 g/dL 3.2-4.5 Complete blood count (CBC) with automate d white blood cell (WBC) differential - 05/03/16 05:39 Blood leukocytes automated count (number/volume) 8.3 10*3/uL 4.3-11.0 Blood erythrocytes automated count (number/volume) 3.56 10*6/uL 4.35-5.85 Venous blood hemoglobin measurement (mass/volume) 11.4 g/dL 13.3-17.7 Blood hematocrit (volume fraction) 33 % 40-54 Automated erythrocyte mean corpuscular volume 91 [ foz_us] 80-99 Automated erythrocyte mean corpuscular h emoglobin (mass per erythrocyte) 32 pg 25-34 Automated erythrocyte mean corpuscular h emoglobin concentration measurement (mass/volume) 35 g/dL 32-36 Automated erythrocyte distribution width ratio 14. 9 % 10.0- 14.5 Automated blood platelet count (count/volume) 221 10*3/uL 130-400 Automated blood platelet mean volume measurement 12.6 [foz_us] 7.4-10.4 Automated blood neutrophils/100 leukocytes 83 % 42-75 Automated blood lymphocytes/100 leukocytes 14 % 12-44 Blood monocytes/100 leukocytes 3 % 0-12 Automated blood eosinophils/100 leukocytes 0 % 0-10 Automated blood basophils/100 leukocytes 0 % 0-10 Blood neutrophils automated count (number/volume) 6.9 10*3 1.8-7.8 Blood lymphocytes automated count (number/volume) 1.2 10*3 1.0-4.0 Blood monocytes automated count (number/volume) 0. 3 10*3 0.0-1.0 Automated eosinophil count 0.0 10*3/uL 0 .0-0.3 Automated blood basophil count (count/volume) 0.0 10*3/uL 0.0-0.1 Comprehensive metabolic panel - 05/03/16 05:39 Serum or plasma sodium measurement (moles/volume) 138 mmol/L 135-145 Serum or plasma potassium measurement (moles/volume) 4.2 mmol/L 3.6-5.0 Serum or plasma chloride measurement (moles/volume) 119 mmol/L 98-107 Carbon dioxide 14 mmol/L 21-32 Serum or plasma anion gap determination (moles/volume) 5 mmol/L 5-14 Serum or plasma urea nitrogen measurement (mass/volume ) 5 mg/dL 7-18 Serum or plasma creatinine measurement (mass/volume) 0.73 mg/dL 0.60-1.30 Serum or plasma urea nitrogen/creatinine mass ratio 7 NRG Serum or plasma creatinine measurement w ith calculation of estimated glomerular filtration rate > NRG Serum or plasma glucose measurement (mass/volume) 155 mg/dL 70-105 Serum or plasma calcium measurement (mass/volume) 8.2 mg/dL 8.5-10.1 Serum or plasma total bilirubin measurement (mass/volu me) 0.4 mg/dL 0.1-1.0 Serum or plasma alkaline phosphatase chirag surement (enzymatic activity/volume) 39 U/L 40-136 Serum or plasma aspartate aminotransfera se measurement (enzymatic activity/volume) 35 U/L 5-34 Serum or plasma alanine aminotransferase measurement (enzymatic activity/volume) 11 U/L 0-55 Serum or plasma protein measurement (mass/volume) 4.9 g/dL 6.4-8.2 Serum or plasma albumin measurement (mass/volume) 3.2 g/dL 3.2-4.5 Complete blood count (CBC) with automate d white blood cell (WBC) differential - 05/07/19 11:30 Blood leukocytes automated count (number/volume) 11.3 10*3/uL 4.3-11.0 Blood erythrocytes automated count (number/volume) 5.43 10*6/uL 4.35-5.85 Venous blood hemoglobin measurement (mass/volume) 17.3 g/dL 13.3-17.7 Blood hematocrit (volume fraction) 49 % 40-54 Automated erythrocyte mean corpuscular volume 91 [ foz_us] 80-99 Automated erythrocyte mean corpuscular h emoglobin (mass per erythrocyte) 32 pg 25-34 Automated erythrocyte mean corpuscular h emoglobin concentration measurement (mass/volume) 35 g/dL 32-36 Automated erythrocyte distribution width ratio 13. 6 % 10.0- 14.5 Automated blood platelet count (count/volume) 278 10*3/uL 130-400 Automated blood platelet mean volume measurement 12.0 [foz_us] 7.4-10.4 Automated blood neutrophils/100 leukocytes 52 % 42-75 Automated blood lymphocytes/100 leukocytes 29 % 12-44 Blood monocytes/100 leukocytes 13 % 0-12 Automated blood eosinophils/100 leukocytes 7 % 0-10 Automated blood basophils/100 leukocytes 0 % 0-10 Blood neutrophils automated count (number/volume) 5.8 10*3 1.8-7.8 Blood lymphocytes automated count (number/volume) 3.2 10*3 1.0-4.0 Blood monocytes automated count (number/volume) 1. 4 10*3 0.0-1.0 Automated eosinophil count 0.8 10*3/uL 0 .0-0.3 Automated blood basophil count (count/volume) 0.0 10*3/uL 0.0-0.1 Comprehensive metabolic panel - 05/07/19 11:30 Serum or plasma sodium measurement (moles/volume) 139 mmol/L 135-145 Serum or plasma potassium measurement (moles/volume) 3.3 mmol/L 3.6-5.0 Serum or plasma chloride measurement (moles/volume) 108 mmol/L 98-107 Carbon dioxide 18 mmol/L 21-32 Serum or plasma anion gap determination (moles/volume) 13 mmol/L 5-14 Serum or plasma urea nitrogen measurement (mass/volume ) 23 mg/dL 7-18 Serum or plasma creatinine measurement (mass/volume) 1.42 mg/dL 0.60-1.30 Serum or plasma urea nitrogen/creatinine mass ratio 16 NRG Serum or plasma creatinine measurement w ith calculation of estimated glomerular filtration rate 53 NRG Serum or plasma glucose measurement (mass/volume) 119 mg/dL 70-105 Serum or plasma calcium measurement (mass/volume) 8.9 mg/dL 8.5-10.1 Serum or plasma total bilirubin measurement (mass/volu me) 0.9 mg/dL 0.1-1.0 Serum or plasma alkaline phosphatase chirag surement (enzymatic activity/volume) 87 U/L 40-136 Serum or plasma aspartate aminotransfera se measurement (enzymatic activity/volume) 9 U/L 5-34 Serum or plasma alanine aminotransferase measurement (enzymatic activity/volume) 6 U/L 0-55 Serum or plasma protein measurement (mass/volume) 6.7 g/dL 6.4-8.2 Serum or plasma albumin measurement (mass/volume) 4.0 g/dL 3.2-4.5 CALCIUM CORRECTED 8.9 mg/dL 8.5-10.1 Magnesium - 05/07/19 11:30 Magnesium 1.8 mg/dL 1.6-2.4 Lipase - 05/07/19 11:30 Lipase < U/L 8-78 THYROID STIMULATING HORMONE - 05/07/19 1 1:30 THYROID STIMULATING HORMONE 0.04 u[iU]/mL 0.35-4.94 Serum or plasma thyroxine (T4) free piedad urement (mass/volume) - 05/07/19 11:30 Serum or plasma thyroxine (T4) free measurement (mass/ volume) 0.97 ng/dL 0.70-1.48 Complete urinalysis with reflex to cultu re - 05/07/19 13:45 Urine color determination YELLOW NRG Urine clarity determination CLEAR NR G Urine pH measurement by test strip 6.0 5-9 Specific gravity of urine by test strip 1.025 1.016-1.022 Urine protein assay by test strip, semi-quantitative NEGATIVE NEGATIVE Urine glucose detection by automated test strip NE GATIVE NEGATIVE Erythrocytes detection in urine sediment by light micr oscopy NEGATIVE NEGATIVE Urine ketones detection by automated test strip NE GATIVE NEGATIVE Urine nitrite detection by test strip NEGATIVE NEGATIVE Urine total bilirubin detection by test strip NEGA TIVE NEGATIVE Urine urobilinogen measurement by automated test strip (mass/volume) 0.2 mg/dL < = 1.0 Urine leukocyte esterase detection by dipstick NEG ATIVE NEGATIVE Automated urine sediment erythrocyte cou nt by microscopy (number/high power field) NONE NRG Automated urine sediment leukocyte count by microscopy (number/high power field) NONE NRG Bacteria detection in urine sediment by light microsco py TRACE NRG Squamous epithelial cells detection in u rine sediment by light microscopy 2-5 NRG Crystals detection in urine sediment by light microsco py NONE NRG Casts detection in urine sediment by light microscopy NONE NRG Mucus detection in urine sediment by light microscopy SMALL NRG Complete urinalysis with reflex to culture NO NRG C DIFFICILE AG + TOXIN A/B. - 05/08/19 0 0:55 RESULTS NEGATIVE FOR ANTIGEN AND TOXIN A/B NRG Complete blood count (CBC) with automate d white blood cell (WBC) differential - 05/08/19 04:55 Blood leukocytes automated count (number/volume) 8.2 10*3/uL 4.3-11.0 Blood erythrocytes automated count (number/volume) 4.61 10*6/uL 4.35-5.85 Venous blood hemoglobin measurement (mass/volume) 14.4 g/dL 13.3-17.7 Blood hematocrit (volume fraction) 43 % 40-54 Automated erythrocyte mean corpuscular volume 92 [ foz_us] 80-99 Automated erythrocyte mean corpuscular h emoglobin (mass per erythrocyte) 31 pg 25-34 Automated erythrocyte mean corpuscular h emoglobin concentration measurement (mass/volume) 34 g/dL 32-36 Automated erythrocyte distribution width ratio 13. 6 % 10.0- 14.5 Automated blood platelet count (count/volume) 204 10*3/uL 130-400 Automated blood platelet mean volume measurement 12.1 [foz_us] 7.4-10.4 Automated blood neutrophils/100 leukocytes 60 % 42-75 Automated blood lymphocytes/100 leukocytes 19 % 12-44 Blood monocytes/100 leukocytes 13 % 0-12 Automated blood eosinophils/100 leukocytes 8 % 0-10 Automated blood basophils/100 leukocytes 0 % 0-10 Blood neutrophils automated count (number/volume) 5.0 10*3 1.8-7.8 Blood lymphocytes automated count (number/volume) 1.6 10*3 1.0-4.0 Blood monocytes automated count (number/volume) 1. 0 10*3 0.0-1.0 Automated eosinophil count 0.6 10*3/uL 0 .0-0.3 Automated blood basophil count (count/volume) 0.0 10*3/uL 0.0-0.1 Comprehensive metabolic panel - 05/08/19 04:55 Serum or plasma sodium measurement (moles/volume) 142 mmol/L 135-145 Serum or plasma potassium measurement (moles/volume) 4.1 mmol/L 3.6-5.0 Serum or plasma chloride measurement (moles/volume) 119 mmol/L 98-107 Carbon dioxide 16 mmol/L 21-32 Serum or plasma anion gap determination (moles/volume) 7 mmol/L 5-14 Serum or plasma urea nitrogen measurement (mass/volume ) 10 mg/dL 7-18 Serum or plasma creatinine measurement (mass/volume) 0.87 mg/dL 0.60-1.30 Serum or plasma urea nitrogen/creatinine mass ratio 11 NRG Serum or plasma creatinine measurement w ith calculation of estimated glomerular filtration rate > NRG Serum or plasma glucose measurement (mass/volume) 96 mg/dL 70-105 Serum or plasma calcium measurement (mass/volume) 7.9 mg/dL 8.5-10.1 Serum or plasma total bilirubin measurement (mass/volu me) 0.5 mg/dL 0.1-1.0 Serum or plasma alkaline phosphatase chirag surement (enzymatic activity/volume) 65 U/L 40-136 Serum or plasma aspartate aminotransfera se measurement (enzymatic activity/volume) 6 U/L 5-34 Serum or plasma alanine aminotransferase measurement (enzymatic activity/volume) < U/L 0-55 Serum or plasma protein measurement (mass/volume) 5.5 g/dL 6.4-8.2 Serum or plasma albumin measurement (mass/volume) 3.4 g/dL 3.2-4.5 CALCIUM CORRECTED 8.4 mg/dL 8.5-10.1 Encounters ACCT No. Visit Date/Time Discharge Status Pt. Type Provider Facility Loc./Unit Complaint [id number] 05/07/2019 13:37:00 019 15:45:00 DIS Inpatient JOE KELLER, EMANUEL Luong [facility] 4TH GASTROENTERITIS [id number] 05/01/2016 15:40:00 016 13:20:00 DIS Inpatient DARLIN FLOREZ, VINAY Yarbrough [facility] 4TH DIARRHEA;HYPONATREMIA/K ALEMIA; PITUITARY INSUFF [id number] 01/25/2013 16:47:00 013 18:30:00 DIS Emergency KALIE KELLER, AREN Granda [facility] ER HEMORRHOID PAIN [id number] 01/20/2013 19:51:00 013 22:01:00 DIS Emergency JESUS RODRÍGUEZ [facility] ER NECK PAIN FROM INJ [id number] 01/16/2013 21:34:00 013 22:33:00 DIS Emergency DUC TERRY MD [facility] ER NECK PAIN [id number] 11/28/2012 12:56:00 013 14:21:00 DIS Emergency AMANDEEP TRAN, JESUS Malhotra [facility] ER RIGHT SHOULDER INJURY
--- OUTSIDE RECORDS SUMMARY | 2019-06-01 08:52 | XMS REPORT | Continuity of Care Document ---
Author Author [facility] Organization [facility] Address Unknown Phone Unavailable Care Team Providers Care Flower Arranger Name Role Phone JD GABRIEL PP Insurance Providers Payer Name Policy Number Subscriber Name Relationship Medicaid [place] [id number] Placido Mahajan 01 Self / Same As Patient Advance Directives Directive Response Recor ded Date Advance Directives N 05/19 9:45pm Organ Donor N 01/16/13 9 :45pm Problems No Known Problems or Medical conditions. Social History History Response Recorde d Date/Time Alcohol Use Rarely Uses 01/16/13 9:45pm Recreational Drug Use N 01/16/13 9:45pm Recent Foreign Travel N 01/16/13 9:45pm Sexually Transmitted Disease N 01/16/13 9:45pm HIV/AIDS N 01/16/13 9:45 pm Allergies, Adverse Reactions, Alerts Allergen Type Severity Reaction Last Updated No Known Drug Allergies 11/28/12 Medications Medication Dose Units Route Sig Qty Days Cyclobenzaprine Hcl (Flexeril Tablet) 10 Mg GT Q8H 20 Tramadol HCl (Ultram) 50 Mg PO Q6H 20 Prednisone 20 Mg PO BID 5 Ibuprofen (Motrin) 800 Mg PO Q8HR PRN 30 Buspirone HCl (Buspar) 15 Tab PO TID 90 Loratadine 10 Mg PO [place] Carbonate ([place] Carbonate Sr 300 Mg) 1 Each PO BID Fluoxetine HCl (Prozac) 1 Each PO DAILY Cyclobenzaprine HCl (Cyclobenzaprine Hcl) 1 Each PO Q8HR PRN 14 Tramadol HCl (Ultram) 50 Mg PO Q4H 14 Response Recorded Date/Time Status not known Unknown Results No Known Relevant Diagnostic Tests, Laboratory Data and/or Discharge Summary. Encounters Encounter Location Date/ Time Departed Emergency Room [facility] 01/16/13 9:34pm
--- OUTSIDE RECORDS SUMMARY | 2019-06-01 08:52 | XMS REPORT | Continuity of Care Document ---
Author Author [facility] Organization [facility] Address Unknown Phone Unavailable Care Team Providers Care Delivery Driver Name Role Phone JD GBARIEL DO PP Insurance Providers Payer Name Policy Number Subscriber Name Relationship Medicaid [place] [id number] Placido Mahajan 01 Self / Same As Patient Advance Directives Directive Response Recor ded Date Advance Directives N 7:55pm Organ Donor N 01/20/13 7 :55pm Problems No Known Problems or Medical conditions. Social History History Response Recorde d Date/Time Alcohol Use Rarely Uses 01/20/13 7:55pm Recreational Drug Use N 01/20/13 7:55pm Recent Foreign Travel N 01/20/13 7:55pm Sexually Transmitted Disease N 01/20/13 7:55pm HIV/AIDS N 01/20/13 7:55 pm Allergies, Adverse Reactions, Alerts Allergen Type Severity Reaction Last Updated No Known Drug Allergies 11/28/12 Medications Medication Dose Units Route Sig Qty Days Hydrocodone Bit/Acetaminophen (Hydrocodo n-Acetaminophen 5-325) 1 Each PO Q4H PRN 10 Cyclobenzaprine Hcl (Flexeril Tablet) 10 Mg GT Q8H 20 Tramadol HCl (Ultram) 50 Mg PO Q6H 20 Prednisone 20 Mg PO BID 5 Ibuprofen (Motrin) 800 Mg PO Q8HR PRN 30 Buspirone HCl (Buspar) 15 Tab PO TID 90 Loratadine 10 Mg PO [place] Carbonate ([place] Carbonate Sr 300 Mg) 1 Each PO BID Fluoxetine HCl (Prozac) 1 Each PO DAILY Cyclobenzaprine HCl (Cyclobenzaprine Hcl) 1 Each PO Q8HR PRN 14 Tramadol HCl (Ultram) 50 Mg PO Q4H 14 Response Recorded Date/Time Status not known Unknown Results No Known Relevant Diagnostic Tests, Laboratory Data and/or Discharge Summary. Encounters Encounter Location Date/ Time Departed Emergency Room [facility] 01/20/13 7:51pm
--- OUTSIDE RECORDS SUMMARY | 2019-06-01 08:52 | XMS REPORT | Continuity of Care Document ---
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 Social History History Response Recorde d Date/Time Alcohol Use Rarely Uses 11/28/12 12:59pm Recreational Drug Use N 11/28/12 12:59pm Allergies, Adverse Reactions, Alerts Allergen Type Severity Reaction Last Updated No Known Drug Allergies 11/28/12 Medications Medication Dose Units Route Sig Qty Days Cyclobenzaprine HCl (Cyclobenzaprine Hcl) 1 Each PO Q8HR PRN 14 Tramadol HCl (Ultram) 50 Mg PO Q4H 14 Buspirone HCl (Buspar) 15 Tab PO TID 90 Loratadine 10 Mg PO [place] Carbonate ([place] Carbonate Sr 300 Mg) 1 Each PO BID Fluoxetine HCl (Prozac) 1 Each PO DAILY Response Recorded Date/Time Status not known Unknown Results No Known Relevant Diagnostic Tests, Laboratory Data and/or Discharge Summary. Encounters Encounter Location Date/ Time Departed Emergency Room [facility] 11/28/12 12:56pm
== END 2019-05-08 12:41 | disposition home or self-care (01) ==
LOC: EDUNIT# 11:01 → ER 11:01 → UNDOADMOB 13:37 → 4TH 13:37 → UNDODISOB 05-08 15:45
PROVIDERS: ADMIT Family Medicine; ATTEND Family Medicine
DX: E27.40 Unspecified adrenocortical insufficiency (principal); K25.9 Gastric ulcer, unspecified as acute or chronic, without hemorrhage or perforation; D72.829 Elevated white blood cell count, unspecified; E87.1 Hypo-osmolality and hyponatremia; E03.9 Hypothyroidism, unspecified; E23.0 Hypopituitarism; E87.6 Hypokalemia; B35.1 Tinea unguium; B37.0 Candidal stomatitis; I95.9 Hypotension, unspecified; M19.90 Unspecified osteoarthritis, unspecified site; F12.90 Cannabis use, unspecified, uncomplicated; F41.9 Anxiety disorder, unspecified; F31.9 Bipolar disorder, unspecified; Z79.899 Other long term (current) drug therapy; Z88.0 Allergy status to penicillin; Z87.891 Personal history of nicotine dependence
CPT/HCPCS: 36415; 74176; 80053; 81000; 83690; 83735; 84439; 84443; 85025; 87324; 87449; 96374; 96375; G0378

== ENCOUNTER 2019-05-31 19:24 | Emergency (ER) | payer MEDICAID ==
[~2019-05-31] VITALS: Ht 165 cm; Wt 73.2 kg
[~2019-05-31 19:24] MED LIST changes: +ARIP20TA9 PO; +ATOR10TA66 PO; +CHOL500044 PO; +CYAN-41 PO; +DIPH1TAB25 PO; +LEVO100T7; +LORA10TA7 PO; +MELO15TA39 PO; +METH500T7 PO; +OMEP20CA13 PO; +ONDA8TAB6 PO; +POTA99TA21 PO; +PRED5TAB PO; +TAMS0.4C98 PO; +TOPI50TA13 PO; +ZOLP10TA5 PO
--- NOTE | 2019-05-31 19:56 | ED General ---
General Chief Complaint: Chest Wall Stated Complaint: RIB PAIN Source of Information: Patient Exam Limitations: No Limitations History of Present Illness Date Seen by Provider: May 31, 2019 Time Seen by Provider: 19:55 Initial Comments To ER with pain to the right anterolateral lower ribs after bending over to reach into the trunk of his car, this area of his chest he felt a popping sensation and now has pain. Rates pain a 4 out of 10 and has taken nothing for it yet. Timing/Duration: 4-6 Hours Severity: Moderate Associated Systoms: Denies Symptoms Allergies and Home Medications Allergies Coded Allergies: Penicillins (Verified Allergy, Unknown, 05/07/19) Home Medications Aripiprazole 20 Mg Tablet, 20 MG PO DAILY, (Reported) Atorvastatin Calcium 10 Mg Tablet, 10 MG PO DAILY, (Reported) Cholecalciferol (Vitamin D3) 5,000 Unit Tablet, 5,000 UNIT PO MoTuWeThFr, (Reported) Cyanocobalamin (Vitamin B-12) 1,000 Mcg Tablet, 1,000 MCG PO DAILY, (Reported) Desmopressin Acetate 0.1 Mg Tablet, 0.1 MG PO BID, (Reported) Diphenoxylate HCl/Atropine 1 Each Tablet, 1 TAB PO BID PRN for DIARRHEA, (Reported) Hydroxyzine HCl 25 Mg Tablet, 25-50 MG PO Q6H PRN for ANXIETY, (Reported) Loratadine 10 Mg Tablet, 10 MG PO DAILY, (Reported) Meloxicam 15 Mg Tablet, 15 MG PO DAILY, (Reported) Methocarbamol 500 Mg Tablet, 500 MG PO TID PRN for MUSCLE SPASMS, (Reported) Omeprazole 20 Mg Capsule.dr, 40 MG PO DAILY, (Reported) TAKES 2 (20MG) CAPSULES Ondansetron HCl 8 Mg Tablet, 8 MG PO TID PRN for NAUSEA/VOMITING-1ST LINE, (Reported) Potassium Gluconate 99 Mg Tablet, 99 MG PO DAILY, (Reported) Prednisone 5 Mg Tablet, 5 MG PO DAILY, (Reported) Prednisone 5 Mg Tablet, 15 MG PO DAILY@0700 Please take three times your daily dose for 1 more day. Prescribed by: EMANUEL DIAZ on 05/08/19 1241 Tamsulosin HCl 0.4 Mg Cap, 0.4 MG PO HS, (Reported) Topiramate 50 Mg Tablet, 50 MG PO BID, (Reported) Zolpidem Tartrate 10 Mg Tablet, 10 MG PO HS PRN for SLEEP, (Reported) Patient Home Medication List Home Medication List Reviewed: Yes Review of Systems Review of Systems Constitutional: see HPI EENTM: see HPI Respiratory: no symptoms reported Cardiovascular: no symptoms reported Genitourinary: no symptoms reported Musculoskeletal: see HPI Skin: no symptoms reported Psychiatric/Neurological: No Symptoms Reported Hematologic/Lymphatic: No Symptoms Reported Past [id number]-[id number]-Kunpki Hx Patient Social History Drug of Choice: thc Type Used: Cigarettes Former Smoker, Quit: May 01, 2008 Recent Foreign Travel: No Contact w/Someone Who Travel: No Recent Hopitalizations: Yes Immunizations Up To Date Tetanus Booster (TDap): Unknown Seasonal Allergies Seasonal Allergies: Yes Past Medical History Surgeries: Yes (pituitary resection 09/20) Pituitary Respiratory: No Currently Using CPAP: No Currently Using BIPAP: No Cardiac: Yes Hypotension Neurological: No Reproductive Disorders: No Sexually Transmitted Disease: No HIV/AIDS: No Genitourinary: No Gastrointestinal: Yes Musculoskeletal: Yes Arthritis Endocrine: Yes Hypothyroidsim, Pituitary Disease HEENT: No Hearing Impairment: Hard of Hearing Cancer: No Brain Did You Recieve Any Treatments: Yes What Type of Treatment Did You: Surgical Intervention Psychosocial: Yes Anxiety, Bipolar, Depression Integumentary: No Blood Disorders: No Adverse Reaction/Blood Tranf: No Family Medical History No Pertinent Family Hx Physical Exam Vital Signs Vital Signs - First Documented 05/31/19 19:47 Temp 36.8 Pulse 71 Resp 18 B/P (MAP) 112/76 (88) Capillary Refill : Height, Weight, BMI Height: 5'6.00" Weight: 153lbs. 0.0oz. 69.576032vp; 26.59 BMI Method:Stated General Appearance: No Apparent Distress, WD/WN Eyes: Bilateral Eye Normal Inspection, Bilateral Eye PERRL HEENT: PERRL/EOMI, TMs Normal Respiratory: No Accessory Muscle Use, No Respiratory Distress Cardiovascular: Regular Rate, Rhythm Gastrointestinal: Normal Bowel Sounds, Non Tender, Soft Extremity: Normal Capillary Refill, Normal Inspection Neurologic/Psychiatric: Alert, Oriented x3 Skin: Normal Color, Warm/Dry Progress/Results/Core Measures Suspected Sepsis SIRS Temperature: Pulse: Respiratory Rate: Blood Pressure / Mean: Results/Orders My Orders Orders - YOUNG EM APRN Ribs/Unilateral With Chest (05/31/19 19:52) Vital Signs/I&O 05/31/19 19:47 Temp 36.8 Pulse 71 Resp 18 B/P (MAP) 112/76 (88) Capillary Refill : Diagnostic Imaging Diagonstic Imaging: Xray Comments NAME: SHARI GLASGOW [facility] REC#: [id number] PT STATUS: REG ER : 1965 PHYSICIAN: YOUNG EM APRN ADMIT DATE: 05/31/19/ER Signed Date of Exam:05/31/19 RIBS/UNILATERAL WITH CHEST INDICATION: Injury, pain inferiorly on the right. FINDINGS: No lung contusion, pneumothorax, or hemothorax. No free air beneath the diaphragms. No rib fracture deformity. No bony destructive process. IMPRESSION: Unremarkable frontal chest and right rib series. Dictated by: Dictated on workstation # [id number] Dict: 05/31/192006 Trans: 05/31/192013 [id number] Interpreted by: JULIANA AVILA Electronically signed by: JULIANA AVILA 05/31/192013 Departure Impression Primary Impression: Rib pain Disposition: 01 HOME, SELF-CARE Condition: Improved Departure-Patient Inst. Decision time for Depature: 19:56 Referrals: NO,LOCAL PHYSICIAN (PCP/Family) Primary Care Physician Patient Instructions: Bruised Rib (DC) Add. Discharge Instructions: Tylenol and appropriate for pain 2. Follow-up with your doctor next week 3. All discharge instructions reviewed with patient and/or family. Voiced understanding. YOUNG EM APRN May 31, 2019 19:56
--- NOTE | 2019-05-31 20:15 | Diagnostic Imaging Report ---
INDICATION: Injury, pain inferiorly on the right. FINDINGS: No lung contusion, pneumothorax, or hemothorax. No free air beneath the diaphragms. No rib fracture deformity. No bony destructive process. IMPRESSION: Unremarkable frontal chest and right rib series. Dictated by: Dictated on workstation # [id number]
[2019-05-31 20:22] VITALS: BP 112/75
== END 2019-05-31 20:25 | disposition home or self-care (01) ==
LOC: EDUNIT# 19:24 → ER 19:25
DX: R07.81 Pleurodynia (principal); F41.9 Anxiety disorder, unspecified; F31.9 Bipolar disorder, unspecified; E03.9 Hypothyroidism, unspecified; Z85.841 Personal history of malignant neoplasm of brain; Z88.0 Allergy status to penicillin; Z87.891 Personal history of nicotine dependence
CPT/HCPCS: 71101

== ENCOUNTER 2019-06-06 15:05 | Emergency (ER) | payer MEDICAID ==
[~2019-06-06] VITALS: Ht 165 cm; Wt 72.0 kg
[2019-06-06] MEDS ORDERED: NS IV 1000 ML 1,000 ML IV SCH ×2 (15:30→16:30)
[2019-06-06] MEDS ORDERED: IBUPROFEN 800 MG (MOTRIN) TAB PO ONE (15:30)
[2019-06-06] MEDS ORDERED: ACETAMINOPHEN 500 MG TAB (TYLENOL) PO ONE (15:30)
--- NOTE | 2019-06-06 15:34 | ED General ---
General Chief Complaint: General Problems/Pain Stated Complaint: FEVER,ACHY Nursing Triage Note: ARRIVFED VIA WC TO TRIAGE WITH COMPLAINTS OF SEVERE WEAKNESS AND PUSS COMING OUT OF HIS LEFT EYE. WILL NOT ANSWER QUESTIONS. Nursing Sepsis Screen: No Definite Risk Source of Information: Patient Exam Limitations: No Limitations History of Present Illness Date Seen by Provider: Jun 06, 2019 Time Seen by Provider: 15:32 Initial Comments To ER with fatigue fever and general weakness since yesterday. Also has purulent discharge from the left eye. Denies cough shortness of breath or sore throat. Denies nausea vomiting diarrhea or abdominal pain. Does report that he is not u rinating much. History of pituitary tumor with resection in 2016 maintained on prednisone 5 mg daily. He's been without this for about 2 or 3 days he believes. Timing/Duration: 1-2 Days Severity: Moderate Associated Systoms: Fever/Chills, Weakness Allergies and Home Medications Allergies Coded Allergies: Penicillins (Verified Allergy, Unknown, 05/07/19) Home Medications Aripiprazole 20 Mg Tablet, 20 MG PO DAILY, (Reported) Atorvastatin Calcium 10 Mg Tablet, 10 MG PO DAILY, (Reported) Cholecalciferol (Vitamin D3) 5,000 Unit Tablet, 5,000 UNIT PO MoTuWeThFr, (Reported) Cyanocobalamin (Vitamin B-12) 1,000 Mcg Tablet, 1,000 MCG PO DAILY, (Reported) Desmopressin Acetate 0.1 Mg Tablet, 0.1 MG PO BID, (Reported) Diphenoxylate HCl/Atropine 1 Each Tablet, 1 TAB PO BID PRN for DIARRHEA, (Reported) Hydroxyzine HCl 25 Mg Tablet, 25-50 MG PO Q6H PRN for ANXIETY, (Reported) Loratadine 10 Mg Tablet, 10 MG PO DAILY, (Reported) Meloxicam 15 Mg Tablet, 15 MG PO DAILY, (Reported) Methocarbamol 500 Mg Tablet, 500 MG PO TID PRN for MUSCLE SPASMS, (Reported) Omeprazole 20 Mg Capsule.dr, 40 MG PO DAILY, (Reported) TAKES 2 (20MG) CAPSULES Ondansetron HCl 8 Mg Tablet, 8 MG PO TID PRN for NAUSEA/VOMITING-1ST LINE, (Reported) Potassium Gluconate 99 Mg Tablet, 99 MG PO DAILY, (Reported) Prednisone 5 Mg Tablet, 5 MG PO DAILY, (Reported) Prednisone 5 Mg Tablet, 15 MG PO DAILY@0700 Please take three times your daily dose for 1 more day. Prescribed by: EMANUEL DIAZ on 05/08/19 1241 Sulfamethoxazole/Trimethoprim 1 Each Tablet, 1 EACH PO BID Prescribed by: YOUNG EM on 06/06/19 1630 Tamsulosin HCl 0.4 Mg Cap, 0.4 MG PO HS, (Reported) Topiramate 50 Mg Tablet, 50 MG PO BID, (Reported) Zolpidem Tartrate 10 Mg Tablet, 10 MG PO HS PRN for SLEEP, (Reported) Patient Home Medication List Home Medication List Reviewed: Yes Review of Systems Review of Systems Constitutional: see HPI, fever (that there), malaise, weakness EENTM: other (left eye conjunctivitis with discharge at medial canthus) Respiratory: see HPI; No cough Cardiovascular: no symptoms reported; No chest pain Gastrointestinal: No abdominal pain, No nausea, No vomiting Genitourinary: no symptoms reported Musculoskeletal: no symptoms reported Skin: no symptoms reported Psychiatric/Neurological: No Symptoms Reported Hematologic/Lymphatic: No Symptoms Reported Immunological/Allergic: no symptoms reported Past Ajkjdir-Cspvgt-Vqrtvi Hx Patient Social History Alcohol Use: Denies Use Recreational Drug Use: Yes (POT) Drug of Choice: MARIJUANA Smoking Status: Former Smoker Type Used: Cigarettes Former Smoker, Quit: May 01, 2008 Recent Foreign Travel: No Contact w/Someone Who Travel: No Recent Infectious Disease Expo: No Recent Hopitalizations: Yes Immunizations Up To Date Tetanus Booster (TDap): Unknown Seasonal Allergies Seasonal Allergies: Yes Past Medical History Surgeries: Yes (pituitary resection 09/20) Pituitary Respiratory: No Currently Using CPAP: No Currently Using BIPAP: No Cardiac: Yes Hypotension Neurological: No Reproductive Disorders: No Sexually Transmitted Disease: No HIV/AIDS: No Genitourinary: No Gastrointestinal: Yes Chronic Diarrhea Musculoskeletal: Yes Arthritis Endocrine: Yes Hypothyroidsim, Pituitary Disease HEENT: No Hearing Impairment: Hard of Hearing Cancer: No Brain Did You Recieve Any Treatments: Yes What Type of Treatment Did You: Surgical Intervention Psychosocial: Yes Anxiety, Bipolar, Depression Integumentary: No Blood Disorders: No Adverse Reaction/Blood Tranf: No Family Medical History No Pertinent Family Hx Physical Exam Vital Signs Vital Signs - First Documented 06/06/19 15:12 Temp 36.8 Pulse 103 Resp 16 B/P (MAP) 104/73 (83) Pulse Ox 97 O2 Delivery Room Air Capillary Refill : Less Than 3 Seconds Height, Weight, BMI Height: 5'6.00" Weight: 153lbs. 0.0oz. [id number]; 26.00 BMI Method:Stated General Appearance: No Apparent Distress, WD/WN, Other (lethargic, unkempt, vitals stable. Doesnt answer unless the question is repeated. ) Eyes: Bilateral Eye Normal Inspection, Bilateral Eye PERRL, Bilateral Eye EOMI HEENT: PERRL/EOMI, TMs Normal Neck: Full Range of Motion, Normal Inspection Respiratory: No Accessory Muscle Use, No Respiratory Distress Cardiovascular: Regular Rate, Rhythm, Normal Peripheral Pulses Gastrointestinal: Normal Bowel Sounds, Non Tender, Soft Extremity: Normal Capillary Refill, Normal Inspection Neurologic/Psychiatric: Oriented x3 Skin: Normal Color, Warm/Dry Focused Exam Lactate Level 06/06/19 15:35: Lactic Acid Level 1.38 Lactic Acid Level Laboratory Tests Test 06/06/19 15:35 Lactic Acid Level 1.38 MMOL/L (0.50-2.00) Progress/Results/Core Measures Suspected Sepsis Recent Fever Within 48 Hours: No Infection Criteria Present: Suspected New Infection New/Unexplained Altered Menta: No Sepsis Screen: No Definite Risk SIRS Temperature: Pulse: 103 Respiratory Rate: 16 Laboratory Tests 06/06/19 15:35: White Blood Count 10.1 Blood Pressure 104 /73 Mean: 83 06/06/19 15:35: Lactic Acid Level 1.38 Laboratory Tests 06/06/19 15:35: Creatinine 0.95, INR Comment 1.1, Platelet Count 234, Total Bilirubin 0.8 Results/Orders Lab Results Laboratory Tests Test 06/06/19 15:27 06/06/19 15:35 Range/Units Urine Color YELLOW Urine Clarity SL CLOUDY Urine pH 6.0 5-9 Urine Specific [place] 1.025 H 1.016-1.022 Urine Protein NEGATIVE NEGATIVE Urine Glucose (UA) NEGATIVE NEGATIVE Urine Ketones 2+ H NEGATIVE Urine Nitrite NEGATIVE NEGATIVE Urine Bilirubin NEGATIVE NEGATIVE Urine Urobilinogen 1.0 < = 1.0 MG/DL Urine Leukocyte Esterase NEGATIVE NEGATIVE Urine RBC (Auto) NEGATIVE NEGATIVE Urine RBC NONE /HPF Urine WBC 10-25 H /HPF Urine Squamous Epithelial Cells RARE /HPF Urine Crystals NONE /LPF Urine Bacteria MODERATE H /HPF Urine Casts NONE /LPF Urine Mucus SMALL H /LPF Urine Culture Indicated YES White Blood Count 10.1 4.3-11.0 10^3/uL Red Blood Count 5.32 4.35-5.85 10^6/uL Hemoglobin 16.8 13.3-17.7 G/DL Hematocrit 48 40-54 % Mean Corpuscular Volume 90 80-99 FL Mean Corpuscular Hemoglobin 32 25-34 PG Mean Corpuscular Hemoglobin Concent 35 32-36 G/DL Red Cell Distribution Width 13.7 10.0-14.5 % Platelet Count 234 130-400 10^3/uL Mean Platelet Volume 11.2 H 7.4-10.4 FL Neutrophils (%) (Auto) 63 42-75 % Lymphocytes (%) (Auto) 18 12-44 % Monocytes (%) (Auto) 11 0-12 % Eosinophils (%) (Auto) 8 0-10 % Basophils (%) (Auto) 0 0-10 % Neutrophils # (Auto) 6.4 1.8-7.8 X 10^3 Lymphocytes # (Auto) 1.8 1.0-4.0 X 10^3 Monocytes # (Auto) 1.1 H 0.0-1.0 X 10^3 Eosinophils # (Auto) 0.8 H 0.0-0.3 10^3/uL Basophils # (Auto) 0.0 0.0-0.1 10^3/uL Prothrombin Time 15.0 H 12.2-14.7 SEC INR Comment 1.1 0.8-1.4 Sodium Level 132 L 135-145 MMOL/L Potassium Level 3.4 L 3.6-5.0 MMOL/L Chloride Level 101 98-107 MMOL/L Carbon Dioxide Level 19 L 21-32 MMOL/L Anion Gap 12 5-14 MMOL/L Blood Urea Nitrogen 17 7-18 MG/DL Creatinine 0.95 0.60-1.30 MG/DL Estimat Glomerular Filtration Rate > 60 BUN/Creatinine Ratio 18 Glucose Level 95 70-105 MG/DL Lactic Acid Level 1.38 0.50-2.00 MMOL/L Calcium Level 8.7 8.5-10.1 MG/DL Corrected Calcium 8.8 8.5-10.1 MG/DL Total Bilirubin 0.8 0.1-1.0 MG/DL Aspartate Amino Transf (AST/SGOT) 12 5-34 U/L Alanine Aminotransferase (ALT/SGPT) < 6 0-55 U/L Alkaline Phosphatase 90 40-136 U/L Total Protein 6.1 L 6.4-8.2 GM/DL Albumin 3.9 3.2-4.5 GM/DL Thyroid Stimulating Hormone (TSH) 0.06 L 0.35-4.94 UIU/ML Free Thyroxine 0.72 0.70-1.48 NG/DL Micro Results Microbiology 06/06/19 Influenza Types A,B Antigen (JEROD) - Final, Complete My Orders Orders - YOUNG EM APRN Chest 1 View, Ap/Pa Only (06/06/19 15:30) Cbc With Automated Diff (06/06/19 15:30) Comprehensive Metabolic Panel (06/06/19 15:30) Protime With Inr (06/06/19 15:30) Ua Culture If Indicated (06/06/19 15:30) Pena Cath (06/06/19 15:30) Blood Culture (06/06/19 15:30) Thyroid Stimulating Hormone (06/06/19 15:30) Lactic Acid Analyzer (06/06/19 15:30) Ns Iv 1000 Ml (Sodium Chloride 0.9%) (06/06/19 15:30) Ibuprofen Tablet (Motrin Tablet) (06/06/19 15:30) Acetaminophen Tablet (Tylenol Tablet) (06/06/19 15:30) Urine Culture (06/06/19 15:27) Ceftriaxone For Iv Use (Rocephin For I (06/06/19 16:15) Prednisone Tablet (Deltasone Tablet) (06/06/19 16:30) Ns Iv 1000 Ml (Sodium Chloride 0.9%) (06/06/19 16:30) Free T4 (Free Thyroxine) (06/06/19 16:51) Medications Given in ED Current Medications Medications Dose Ordered Sig/Francisco Route Start Time Stop Time Status Last Admin Dose Admin Acetaminophen 1,000 mg ONCE ONCE PO 06/06/19 15:30 06/06/19 15:33 DC 06/06/19 15:41 1,000 MG Ceftriaxone Sodium 1000 mg/ Sterile Water 10 ml @ 200 mls/hr ONCE ONCE IV 06/06/19 16:15 06/06/19 16:17 DC 06/06/19 16:39 200 MLS/HR Ibuprofen 800 mg ONCE ONCE PO 06/06/19 15:30 06/06/19 15:33 DC 06/06/19 15:41 800 MG Prednisone 20 mg ONCE ONCE PO 06/06/19 16:30 06/06/19 16:31 DC 06/06/19 16:41 20 MG Vital Signs/I&O 06/06/19 06/06/19 06/06/19 15:12 16:15 17:43 Temp 36.8 37.3 37.3 Pulse 103 87 87 Resp 16 20 20 B/P (MAP) 104/73 (83) 101/68 111/67 (79) Pulse Ox 97 95 95 O2 Delivery Room Air Room Air Room Air Capillary Refill : Less Than 3 Seconds Blood Pressure Mean: 83 Diagnostic Imaging Diagonstic Imaging: Xray Plain Films/CT/US/NM/MRI: chest Comments NAME: [facility]ASGOW [facility] REC#: [id number] PT STATUS: REG ER : 1965 PHYSICIAN: YOUNG EM APRN ADMIT DATE: 06/06/19/ER Draft Date of Exam:06/06/19 CHEST 1 VIEW, AP/PA ONLY INDICATION: Chest pain. Portable chest at 03:48 p.m. FINDINGS: Heart size and pulmonary vascularity are normal. Lungs are clear. There are no effusions or pneumothoraces. IMPRESSION: Negative chest. Dictated on workstation # [id number] Dict: 06/06/19 1550 Trans: 06/06/19 1555 [id number] Interpreted by: AREN ANTONY MD Electronically signed by: Departure Communication (Admissions) [id number]-feeling quite a bit more alert now with only treating the fever. He does have a UTI. I'll give Rocephin for that. He is on prednisone 5 mg daily for adrenal insufficiency, I'll increase this to 15 mg daily for 3 days. First dose to be given here at 20 mg. 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 Decision time for Depature: 16:28 Referrals: NO,LOCAL PHYSICIAN (PCP/Family) Primary Care Physician Patient Instructions: Urinary Tract Infection, Adult (DC) Add. Discharge Instructions: 1. Increase your prednisone dose from 5 mg daily to 15 mg daily for 2 days starting tomorrow. Take the antibiotics as directed starting tomorrow. Return to ER for any worsening. All discharge instructions reviewed with patient and/or family. Voiced understanding. Scripts Sulfamethoxazole/Trimethoprim (Bactrim Ds Tablet) 1 Each Tablet 1 EACH PO BID, #14 TAB Prov: YOUNG EM APRN 06/06/19 YOUNG EM APRN Jun 06, 2019 15:34
[2019-06-06 15:46] LABS: BASOPHILS % (AUTO) 0 % (0-10); EOSINOPHILS # (AUTO) 0.8 10^3/uL (0.0-0.3); EOSINOPHILS % (AUTO) 8 % (0-10); HEMATOCRIT 48 % (40-54); HEMOGLOBIN 16.8 G/DL (13.3-17.7); LYMPHOCYTES # (AUTO) 1.8 X 10^3 (1.0-4.0); LYMPHOCYTES % (AUTO) 18 % (12-44); MEAN CORPUSCULAR HEMOGLOBIN 32 PG (25-34); MEAN CORPUSCULAR HGB CONC 35 G/DL (32-36); MEAN CORPUSCULAR VOLUME 90 FL (80-99); MEAN PLATELET VOLUME 11.2 FL (7.4-10.4); MONOCYTES # (AUTO) 1.1 X 10^3 (0.0-1.0); MONOCYTES % (AUTO) 11 % (0-12); NEUTROPHILS # (AUTO) 6.4 X 10^3 (1.8-7.8); NEUTROPHILS % (AUTO) 63 % (42-75); PLATELET COUNT 234 10^3/uL (130-400); RED CELL DISTRIBUTION WIDTH 13.7 % (10.0-14.5); WHITE BLOOD COUNT 10.1 10^3/uL (4.3-11.0)
--- NOTE | 2019-06-06 15:56 | Diagnostic Imaging Report ---
INDICATION: Chest pain. Portable chest at 03:48 p.m. FINDINGS: Heart size and pulmonary vascularity are normal. Lungs are clear. There are no effusions or pneumothoraces. IMPRESSION: Negative chest. Dictated by: Dictated on workstation # [id number]
[2019-06-06 16:08] LABS: BILIRUBIN,URINE NEGATIVE (NEGATIVE); CLARITY,URINE SL CLOUDY; COLOR,URINE YELLOW; GLUCOSE, URINE (UA) NEGATIVE (NEGATIVE); KETONES,URINE 2+ (NEGATIVE); LEUKOCYTE ESTERASE ,URINE NEGATIVE (NEGATIVE); NITRITE,URINE NEGATIVE (NEGATIVE); PROTEIN,URINE NEGATIVE (NEGATIVE)
[2019-06-06 16:09] LABS: BACTERIA,URINE MODERATE /HPF; SQUAMOUS EPITHELIAL CELL,UR RARE /HPF
[2019-06-06 16:21] LABS: INR 1.1 (0.8-1.4)
[2019-06-06 16:22] LABS: ALANINE AMINOTRANSFERASE < 6 U/L (0-55); ALBUMIN 3.9 GM/DL (3.2-4.5); ALKALINE PHOSPHATASE 90 U/L (40-136); BILIRUBIN,TOTAL 0.8 MG/DL (0.1-1.0); BUN/CREATININE RATIO 18; CALCIUM 8.7 MG/DL (8.5-10.1); CARBON DIOXIDE 19 MMOL/L (21-32); CHLORIDE 101 MMOL/L (98-107); CREATININE SERUM 0.95 MG/DL (0.60-1.30); GFR ESTIMATED > 60; GLUCOSE 95 MG/DL (70-105); POTASSIUM 3.4 MMOL/L (3.6-5.0); SODIUM 132 MMOL/L (135-145); TOTAL PROTEIN 6.1 GM/DL (6.4-8.2)
[2019-06-06] MEDS ORDERED: predniSONE 20 MG TAB PO ONE (16:30)
[2019-06-06] MEDS ORDERED: SULF1TAB35 PO (16:30)
[2019-06-06] MEDS: cefTRIAXone FOR IV USE 1,000 MG in WATER (STERILE) FOR INJECTION 10 ML IV ONE ×2 (16:31→16:39)
[2019-06-06 17:43] VITALS: BP 111/67
== END 2019-06-06 17:48 | disposition home or self-care (01) ==
LOC: EDUNIT# 15:05 → ER 15:07
DX: N39.0 Urinary tract infection, site not specified (principal); E89.3 Postprocedural hypopituitarism; E03.9 Hypothyroidism, unspecified; F41.9 Anxiety disorder, unspecified; F31.9 Bipolar disorder, unspecified; Z88.0 Allergy status to penicillin; Z79.52 Long term (current) use of systemic steroids; Z87.891 Personal history of nicotine dependence; Z85.841 Personal history of malignant neoplasm of brain
CPT/HCPCS: 36415; 51702; 71045; 80053; 81000; 83605; 84439; 84443; 85025; 85610; 87040; 87077; 87088; 87804; 96361; 96374